=== PATIENT | female | born 1970 | race Caucasian/White ===

== ENCOUNTER → 2018-04-30 | Outpatient (CLI) | payer BC ==
--- NOTE | 2018-05-01 17:57 | Diagnostic Imaging Report ---
INDICATION: Routine screening. COMPARISON: Comparison is made with prior mammograms from 12/01/2016 and 12/04/2014. TECHNIQUE: 2D and 3D bilateral screening mammography was performed with computer-aided detection (CAD) system. FINDINGS: Both breasts remain heterogeneously dense, limiting the sensitivity of mammography. No mass or malignant appearing microcalcifications are seen. The axillae are unremarkable. IMPRESSION: No mammographic features suspicious for malignancy are identified. ACR BI-RADS Category 1: Negative. Result letter will be mailed to the patient. Note: At least 10% of breast cancer is not imaged by mammography. Dictated by: Dictated on workstation # [id number]
== END ==
LOC: RAD 09:56
PROVIDERS: ATTEND Obstetrics & Gynecology
DX: Z12.31 Encounter for screening mammogram for malignant neoplasm of breast (principal); R92.8 Other abnormal and inconclusive findings on diagnostic imaging of breast
CPT/HCPCS: 77067

== ENCOUNTER → 2019-03-12 | Outpatient (CLI) | payer BC, OTHER ==
--- NOTE | 2019-03-12 14:04 | Diagnostic Imaging Report ---
PROCEDURE: US Non-ob pelvis comp/trans. TECHNIQUE: Multiple real-time grayscale images were obtained of the pelvis in various projections endovaginally. Transabdominal imaging was also performed. INDICATION: Right-sided pelvic fullness. FINDINGS: Uterus measures 8.7 x 4.3 x 4.6 cm. Endometrium is 3 mm in thickness. Hypoechoic myometrial masses are noted, largest approximately 14 mm x 12 mm. Second nodule is approximately 13 mm x 11 mm. These may represent fibroids. Right ovary measures 3.6 x 1.6 x 1.4 cm and the left ovary measures 4.1 x 3.5 x 3.1 cm. Left ovary does contain a 3.3 x 2.8 cm cyst. No free fluid is detected. IMPRESSION: 1. Fibroid uterus. 2. 3.3 cm left ovarian cyst. Dictated by: Dictated on workstation # [id number]
== END ==
LOC: RAD 10:00
PROVIDERS: ATTEND Obstetrics & Gynecology
DX: D25.9 Leiomyoma of uterus, unspecified (principal); N83.202 Unspecified ovarian cyst, left side
CPT/HCPCS: 76830; 76856

== ENCOUNTER → 2019-07-09 | Outpatient (CLI) | payer BC, OTHER ==
--- NOTE | 2019-07-09 19:27 | Diagnostic Imaging Report ---
EXAM: Digital mammogram bilateral screening COMPARISONS: 04/30/2018 and 12/01/2016. There are no current complaints. The current study was also evaluated with a Computer Aided Detection (CAD) system. FINDINGS: The fibroglandular tissue in both breasts is heterogeneously dense. This does limit the sensitivity of this exam. Overall, there does not appear to have been any significant change when compared to the prior study. No primary or secondary sign of malignancy is noted. IMPRESSION: There is no radiographic evidence for malignancy. ACR BI-RADS Category 1: Negative. Result letter will be mailed to the patient. Note: At least 10% of breast cancer is not imaged by mammography. Dictated by: Dictated on workstation # [id number]
== END ==
LOC: RAD 10:09
PROVIDERS: ATTEND Obstetrics & Gynecology
DX: Z12.31 Encounter for screening mammogram for malignant neoplasm of breast (principal)
CPT/HCPCS: 77063; 77067

== ENCOUNTER → 2020-07-21 | Outpatient (CLI) | payer OTHER ==
--- NOTE | 2020-07-21 13:59 | Diagnostic Imaging Report ---
INDICATION: Routine screening. COMPARISON: 07/09/2019 and 04/30/2018. TECHNIQUE: 2D and 3D bilateral screening mammography was performed with CAD. FINDINGS: Both breasts are heterogeneously dense, limiting the sensitivity of mammography. The parenchymal pattern is stable. No mass or malignant appearing microcalcifications are seen. The axillae are unremarkable. IMPRESSION: No mammographic features suspicious for malignancy are identified. ACR BI-RADS Category 1: Negative. Result letter will be mailed to the patient. Note: At least 10% of breast cancer is not imaged by mammography. Dictated by: Dictated on workstation # [id number]
--- NOTE | 2020-07-21 17:59 | Diagnostic Imaging Report ---
PROCEDURE: Pelvic comp/transvaginal sonogram. TECHNIQUE: Complete transabdominal and transvaginal pelvic ultrasound was performed. In addition, limited pelvic Doppler was performed. INDICATION: Uterine fibroids. COMPARISON: Correlation is made with prior ultrasound from 03/12/2019. FINDINGS: Uterus measures 6.6 x 3.7 x 3.6 cm and is retroverted. Endometrium is 3 mm in thickness. There is significant heterogeneity to the uterine myometrium. There appears to be a posterior fibroid of approximately 10 mm x 7 mm x 10 mm in size. This measures slightly smaller than prior exam. Additional fibroids seen on prior exam are not seen on today's study. Right ovary measures 3.7 x 2.0 x 1.7 cm and the left ovary measures 2.5 x 1.5 x 1.6 cm. There are two cysts involving the right ovary. A partially collapsed cyst on the right measures 15 mm x 11 mm x 10 mm. A second cyst measures 17 mm x 14 mm x 12 mm. There is blood flow to both ovaries. Trace free fluid in the cul-de-sac is noted. IMPRESSION: 1. Heterogeneous myometrium with small uterine fibroid posteriorly. 2. Right-sided ovarian cysts, as described. Dictated by: Dictated on workstation # [id number]
== END ==
LOC: RAD 12:00
PROVIDERS: ATTEND Obstetrics & Gynecology
DX: Z12.31 Encounter for screening mammogram for malignant neoplasm of breast (principal); D25.9 Leiomyoma of uterus, unspecified; N83.201 Unspecified ovarian cyst, right side
CPT/HCPCS: 76830; 76856; 77063; 77067

== ENCOUNTER → 2021-08-12 | Outpatient (CLI) | payer OTHER ==
--- NOTE | 2021-08-12 13:05 | Diagnostic Imaging Report ---
Indication: Routine screening. Comparison is made with prior mammogram from 07/21/2020 and 07/09/2019. 2-D and 3-D bilateral screening mammography was performed with CAD. CAD is utilized. The current study was also evaluated with a Computer Aided Detection (CAD) system. Both breasts are heterogeneously dense, limiting the sensitivity of mammography. The parenchymal pattern is stable. No mass or malignant-appearing microcalcifications are seen. Axillae are unremarkable. IMPRESSION: BI-RADS Category 1 No mammographic features suspicious for malignancy are identified. ACR BI-RADS Category 1: Negative. Result letter will be mailed to the patient. Note: At least 10% of breast cancer is not imaged by mammography. Dictated by: Dictated on workstation # [id number]
== END ==
LOC: RAD 10:45
PROVIDERS: ATTEND Obstetrics & Gynecology
DX: Z12.31 Encounter for screening mammogram for malignant neoplasm of breast (principal)
CPT/HCPCS: 77063; 77067

== ENCOUNTER → 2021-09-07 | Outpatient (CLI) | payer OTHER ==
--- NOTE | 2021-09-07 09:50 | Diagnostic Imaging Report ---
PROCEDURE: MRI right joint lower extremity without contrast. TECHNIQUE: Multiplanar, multisequence non contrast-enhanced MRI of the right lower extremity was accomplished. INDICATION: Chondromalacia the right patella COMPARISON: None FINDINGS: No acute fracture seen in the right knee. Alignment appears normal. There is a minimal right knee joint effusion. The articular cartilage in the patellofemoral compartment demonstrates a full-thickness cartilage loss over the median ridge measuring about 1 cm transverse, with heterogeneity and surface irregularity elsewhere. The articular cartilage in the medial compartment demonstrates mild thinning with no large full-thickness defects. The cartilage in the lateral compartment demonstrates marked full-thickness loss along the weightbearing aspect. The medial meniscus appears mildly diminutive, but no definite tear is seen. The lateral meniscus demonstrates intrasubstance degeneration with a radial tear at the root and a horizontal tear of the body. The anterior and posterior cruciate ligaments are intact. The medial collateral ligament appears intact. The lateral collateral ligamentous complex is intact. The extensor mechanism is intact. The medial and lateral retinacula are intact. Soft tissues about the right knee are otherwise unremarkable. IMPRESSION: 1. Full-thickness cartilage loss at the weightbearing lateral compartment and a full-thickness cartilage defect at the median ridge of the patella. 2. Tearing of the lateral meniscus. Dictated by: Dictated on workstation # [id number]
== END ==
LOC: RAD 08:00
PROVIDERS: ATTEND Family Medicine Sports Medicine
DX: S83.281A Other tear of lateral meniscus, current injury, right knee, initial encounter (principal); S83.241A Other tear of medial meniscus, current injury, right knee, initial encounter; M22.41 Chondromalacia patellae, right knee; X58.XXXA Exposure to other specified factors, initial encounter
CPT/HCPCS: 73721